=== PATIENT | female | born 1965 | race Caucasian/White ===

== ENCOUNTER 2025-03-27 09:36 | Outpatient (CLI) | payer MEDICARE, MEDICAID, SELFPAY ==
--- NOTE | ~2025-03-27 | MR_ITS ---
EXAMINATION: MR lumbar spine wo con DATE: 03/27/2025 10:08 INDICATION: Lumbar radicular pain TECHNIQUE: Magnetic resonance imaging (MRI) of the lumbar spine was performed without intravenous con trast. Sequences included sagittal T2-weighted FSE, sagittal T2-weighted FS FSE, sagittal T1-weighted FSE, and axial T2-weighted FSE. COMPARISON: None FINDINGS: 20 degree lumbar levoscoliosis. 2 mm retrolisthesis L1 on L2 and L2 on L3. 1-2 mm anterolisthesis L4 on L5. Vertebral body heights are normal. Moderate to severe right-sided disc height loss at L3-L4 an d left-sided disc height loss at L5-S1, both levels with associated fibrovascular degenerative endpla te changes. Marrow signal is otherwise normal. Moderate disc height loss at L1-L2 and L4-L5. Mild rig ht-sided disc height loss at L2-L3 and mild left-sided disc height loss at T11-T12 and T12-L1. The co nus medullaris terminates at L2. There is normal signal in the caudal spinal cord. Subcutaneous edema posterior to the lumbar spine. Paravertebral soft tissues are otherwise unremarkable. The following disc levels are specifically discussed: T12-L1: Disc is bulging. There is mild right and moderate left facet joint osteoarthritis. There is m ild left neural foraminal stenosis. There is mild central canal stenosis. L1-L2: Disc is bulging. There is mild left and moderate right facet joint osteoarthritis. There is mi ld left and mild to moderate right neural foraminal stenosis. There is mild central canal stenosis. L2-L3: The disc does not extend beyond the more posterior L2 inferior endplate margin. There is mild bilateral facet joint osteoarthritis. There is mild bilateral neural foraminal stenosis. There is mil d central canal stenosis. L3-L4: Disc is mildly bulging. There is mild left and moderate right facet joint osteoarthritis. Ther e is mild to moderate left and moderate right neural foraminal stenosis. There is moderate central ca nal stenosis. L4-L5: Disc is bulging with superimposed annular fissure and right paracentral disc extrusion with di sc material extending up to 5 mm cephalad to the level of the inferior endplate of L4. There is sever e bilateral facet joint osteoarthritis. There is moderate bilateral neural foraminal stenosis. There is mild central canal stenosis. L5-S1: Disc is bulging. There is moderate right and moderate to severe left facet joint osteoarthriti s. There is mild bilateral neural foraminal stenosis. There is mild central canal stenosis. IMPRESSION: 1. 20 degree lumbar levoscoliosis with severe spondylosis. Reviewed, dictated and finalized at location A.
== END 2025-03-27 09:37 | disposition home or self-care (01) ==
PROVIDERS: PCP Nurse Practitioner Family; Visit Provider Nurse Practitioner Family
DX: M41.86 Other forms of scoliosis, lumbar region (principal); M47.816 Spondylosis without myelopathy or radiculopathy, lumbar region
CPT/HCPCS: 72148